=== PATIENT | female | born 1950 | race Two or more races ===

== ENCOUNTER 2021-06-30 00:12 | Emergency (ER) | payer MEDICARE ==
[~2021-06-30] VITALS: Ht 162.6 cm; Wt 85.3 kg
[2021-06-30 00:12] VITALS: BP 145/61
== END 2021-06-30 10:09 | disposition home or self-care (01) ==
LOC: ER 00:12
DX: T81.89XA Other complications of procedures, not elsewhere classified, initial encounter (principal); I10 Essential (primary) hypertension; Z96.651 Presence of right artificial knee joint